=== PATIENT | male | born 1995 ===

== ENCOUNTER 2016-09-21 13:04 | Emergency (ER) | payer OTHER ==
--- NOTE | 2016-09-21 15:24 | ED NURSING NOTES ---
Clinical Report - Nurses [facility] [place] [address] 09/21/2016 13:05 Patient: NAZARIO WHIPPLE TRIAGE Triage time 13:16. Acuity: LEVEL 3. Chief Complaint: SORE THROAT. 13:16 09/21/16. 13:16 09/21/16. ( Pt is post tonsillectomy and now cannot swallow and has a fever. Pt was advised to come the ER due to a possible throat infection.). --13:20 Dedrick Leung R.N. 13:15 09/21/16. BP: 151/97. HR: 96. RR: 18. O2 saturation: 100% on room air. Temp: 98.4 F (oral). Pain level now: cannot qualify. --13:20 Dedrick Leung R.N. Weight: 142.4 kg. Height/Length: 66 inches. BMI: 50.7. --13:18 Dedrick Leung R.N. Medications OxyCODONE HCl Oral. --13:18 Dedrick Leung R.N. Dexamethasone Oral. --13:19 Dedrick Leung R.N. Amoxicillin Oral. --13:19 Dedrick Leung R.N. Medication/allergy information source: the patient's guardian / financial service professional. --13:20 Dedrick Leung R.N. Allergies No Known Drug Allergy. --15:38 Dedrick Leung R.N. History Arrived by private vehicle. Primary physician (Maribell SIDDIQUI). 13:16 09/21/16. He has no dental appointment scheduled. 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 PAST MEDICAL HX: Immunizations: up-to-date. SOCIAL HX: Never smoker. No alcohol use or drug use. No infectious disease exposure. ABUSE ASSESSMENT: No report of abuse. FALL RISK ASSESSMENT: Fall risk assessment completed. No fall risk identified. NUTRITIONAL RISK ASSESSMENT: The nutritional risk assessment revealed no deficiencies. FUNCTIONAL ASSESSMENT: Functional assessment: no impairments noted. LEARNING NEEDS ASSESSMENT: The learning needs assessment revealed no barriers. SKIN INTEGRITY ASSESSMENT: Skin integrity risk assessment completed. No skin integrity risk identified. --13:20 Dedrick Leung R.N. PROBLEMS: Strep Throat. Tonsillitis. Abdominal Pain. Immunizations. Depression. Anxiety Reaction. ADHD - Attention Deficit Hyperactivity Disorder. --13:19 Dedrick eLung R.N. ADDITIONAL SURGERIES: Tonsillectomy. --13:19 Dedrick Leung R.N. Assessment 13:09/21/16. --13:20 Dedrick Leung R.N. Interventions 13:09/21/16. 13:09/21/16. ID and allergy band on patient. To treatment room. --13:20 Dedrick Leung R.N. PHYSICAL ASSESSMENT 13:09/21/16. GENERAL / NEURO / PSYCH: Alert. Oriented X 4. ( Pt is non verbal due to throat pain). HEENT: Voice abnormal. CVS: Capillary refill less than 2 seconds. SKIN: Skin is warm and dry. --13:20 Dedrick Leung R.N. NURSING PROGRESS NOTES 13:09/21/16. The plan of care for this patient has been created. Patient gowned. Head of bed elevated. Reassurance given. Two patient identifiers checked. Call light placed in reach. Side rails up x 2. Bed placed in lowest position. Brakes of bed on. Brakes of chair on. --13:20 Dedrick Leung R.N. 13:09/21/16. Patient ready for evaluation- chart flagged and notification provided. --13:20 Dedrick Leung R.N. 13:54 09/21/2016 Site #1 started via IV in the left antecubital space with an 20g angiocath, with aseptic technique and good blood return; one attempt. Blood drawn: rainbow set. Labeled in the presence of the patient and sent to the lab. Saline lock flushed with 10 mL saline. --13:54 Dedrick Leung R.N. 13:54 09/21/2016 Started bag #1 1000 mL IV Fluids IV NS (Saline); at 1000 mL/hr over 1 hour(s) via site #1. Allergies verified and confirmed 5 rights. IV patency established. IV site checked: no pain, redness, or swelling. IV flushed thoroughly pre- and post-medication administration. Completed per protocol. --13:54 Dedrick Leung R.N. 13:55 09/21/2016 Dilaudid (HYDROmorphone HCl PF) IVP 1 mg given over 2 minute(s) via site #1. Allergies verified, confirmed 5 rights and sedative warning given to the patient. IV patency established. IV site checked: no pain, redness, or swelling. IV flushed thoroughly pre- and post-medication administration. IVP given by RN. --13:55 Dedrick Leung R.N. 14:33 09/21/2016 Started 900 mg of Clindamycin IVPB in bag #1 50 mL; at 100 mL/hr over 30 minute(s) via site #1; Allergies verified and confirmed 5 rights. IV patency established. IV site checked: no pain, redness, or swelling. IV flushed thoroughly pre- and post-medication administration. Completed per protocol. --14:33 Dedrick Leung R.N. 14:33 09/21/2016 Started bag #2 1000 mL IV Fluids IV NS (Saline); at 1000 mL/hr over 1 hour(s) via site #1. Allergies verified and confirmed 5 rights. IV patency established. IV site checked: no pain, redness, or swelling. IV flushed thoroughly pre- and post-medication administration. Completed per protocol. --14:33 Dedrick Leung R.N. 14:34 09/21/16. --14:34 Dedrick Leung R.N. 14:33 09/21/16. BP: 144/70. HR: 87. RR: 12. O2 saturation: 99% on room air. Temp: 98.2 F (oral). --14:34 Dedrick Leung R.N. 14:34 09/21/16. Reassessment after medication administered. He reports no complaints, he is calm, resting quietly and sleeping and he has had no adverse reaction. Overall patient status is improved- he states feels better. --14:34 Dedrick Leung R.N. 15:05 09/21/2016 Clindamycin IVPB Discontinued: bag #1 infused. Total amount infused: 50 mL. --15:35 Dedrick Leung R.N. <<STRICKEN ENTRY-- 15:10 09/21/2016 Clindamycin IVPB Discontinued: bag #1 infused. Total amount infused: 100 mL. --15:35 eDdrick Leung R.N. --END STRIKE>> Correction. --15:35 Dedrick Leung R.N. 15:30 09/21/2016 Site #1 removed upon discharge. Catheter intact. --15:35 Dedrick Leung R.N. 15:31 09/21/2016 IV Fluids IV NS Discontinued: bag #1 infused. Total amount infused: 1000 mL. IV patency established. IV site checked: no pain, redness, or swelling. IV flushed thoroughly. --15:36 Dedrick Leung R.N. 15:36 09/21/2016 IV Fluids IV NS Discontinued: bag #1 infused upon discharge. Total amount infused: 1000 mL. IV patency established. IV site checked: no pain, redness, or swelling. IV flushed thoroughly. --15:36 Dderick Leung R.N. 15:37 09/21/16. Overall patient status is improved- he states feels better. --15:37 Dedrick Leung R.N. DISPOSITION / DISCHARGE 15:37 09/21/16. Condition at departure: improved. The goals identified in the patient's plan of care were met. No learning barriers present. Discharge instructions provided and reviewed with the patient. Reviewed warnings. Reviewed medication(s). Treatments reviewed. Reviewed referral to an ear, nose, and throat specialist (security sales consultant) for followup. Written instructions provided in Italian. Caregiver verbalized understanding. The patient was discharged by the physician investment sales assistant. He was discharged home and accompanied by bus van driver. He left the Emergency Department ambulatory and via private vehicle. System Archive Analyst driving (caregiver). FALL RISK ASSESSMENT: Fall risk assessment completed. No fall risk identified. --15:37 Dedrick Leung R.N. 15:36 09/21/16. BP: 122/76. HR: 80. RR: 12. O2 saturation: 99% on room air. Temp: 98.7 F (oral). --15:37 Dderick Leung R.N. 15:37 09/21/16. Departure time: 15:37. --15:37 Dedrick Leung R.N. Condition at departure: improved. --15:37 Dedrick Leung R.N. Locked/Released at 09/21/2016 15:54 by Dedrick Leung R.N.
--- NOTE | 2016-09-21 15:24 | ED CLINICAL REPORT ---
Clinical Report - Physicians/Mid Levels [facility] [address] [place] [place] [address] 09/21/2016 13:05 Patient: NAZARIO WHIPPLE Time Seen: 13:23 Sep 21 2016. Arrived- By private vehicle. Historian- patient. HISTORY OF PRESENT ILLNESS Chief Complaint: SORE THROAT. This started just prior to arrival and is still present. Pain described as mild. The patient has had a sore throat. (20-year-old male, with disability, mental delay, has a caregiver provided by the [facility], status post tonsillectomy on the , 2 days prior to arrival, worsening of pain, difficulty swallowing, was seen by primary care provider today, who discussed the case with Dr. Jay, who). REVIEW OF SYSTEMS The patient has had fever. No cough, difficulty breathing, joint pain or enlarged lymph nodes. All systems otherwise negative, except as recorded above. ADDITIONAL NOTES The nursing notes have been reviewed. PHYSICAL EXAM Vital Signs: 09/21/2016 13:15 BP: 151/97. HR: 96. RR: 18. O2 saturation: 100%. Temp: 98.4 F. Appearance: Alert. Head: Normal external inspection. ENT: Ears normal. Nose normal. Pharyngeal erythema. Tonsillar exudate present. No dental decay. Neck: Lymphadenopathy present. Trachea midline. Thyroid normal. Neck supple. No thyromegaly or meningeal signs. CVS: Normal heart rate and rhythm. Heart sounds normal. Respiratory: No respiratory distress. Breath sounds normal. LABS, X-RAYS, AND EKG Laboratory Tests: CBC w Diff: (SHIV: 09/21/2016 13:40) ( MsgRcvd 09/21/2016 14:10) Final results Test Result Flag Units (Reference) WHITE BLOOD COUNT 15.7 H K/uL (4.5-11.5) RED BLOOD COUNT 5.37 M/uL (4.50-5.90) HEMOGLOBIN 15.3 gm/dL (13.5-17.5) HEMATOCRIT 45.6 % (41.0-53.0) MEAN CELL VOLUME 85 fL (80-100) MEAN CORPUSCULAR HGB 29 pg (26-34) MEAN CORPUSCULAR HGB CONC 34 g/dL (31-37) RED CELL DISTRIBUTION WIDTH 13.5 % (11.6-14.8) PLATELET COUNT 285 K/uL (150-400) NEUTROPHIL % 63.8 % (50-75) LYMPH % 28.4 % (25-40) MONO % 6.8 % (3-14) EOSINOPHIL % 0.3 % (0-4) BASOPHIL % 0.7 % (0-2) BMP: (SHIV: 09/21/2016 13:40) ( MsgRcvd 09/21/2016 14:02) Final results Test Result Flag Units (Reference) GLUCOSE 91 mg/dL (70-110) BUN 21 H mg/dL (7-18) CREATININE 1.0 mg/dL (0.6-1.3) Estimated GFR >60 mL/min Estimated GFR- >60 mL/min Note: Persistent reduction over 3 months in eGFR<60 mL/min/1.73 m2 defines CKD. Patients with eGFR values>=60 mL/min/1.73 m2 may also have CKD if evidence ofpersistent proteinuria. Additional information may be foundat www.kidney.org. SODIUM 145 mmol/L (136-145) POTASSIUM 3.4 L mmol/L (3.5-5.1) CHLORIDE 104 mmol/L (98-107) CARBON DIOXIDE 28 mmol/L (21-32) CALCIUM 9.6 mg/dL (8.5-10.1) . PROGRESS AND PROCEDURES Course of Care: Pt in er able to tolerate po fluid, given iv ns, given iv abx, uvula midline, generalized swelling, white exudates, no bleeding. Pt stable. Pt is with no uvula shift. No distress. Stable Pt with mild anterior lymphadenopathy. No clinical signs of abscess. No left shift with 15.7 luekocytosis as this may be due to steroid use at home, dexamethasone since the . 09/21/2016 14:33 BP: 144/70. HR: 87. RR: 12. O2 saturation: 99%. Temp: 98.2 F. Patient is stable. Physical exam findings are improved. Symptoms better. Patient/family counseled. Disposition: Discharged. Condition: good. CLINICAL IMPRESSION Acute pharyngitis Post-operative complication from ear, nose, and throat surgery- infection (pain). INSTRUCTIONS Drink plenty of fluids. Prescription Medications: Cleocin 300 mg: take 1 capsule orally every 8 hours for 10 days. Substitution is permissible. Follow-up: Follow up with your doctor in three days if not well. Understanding of the discharge instructions verbalized by patient. (Electronically signed by Martha Triplett P.A.-C 09/21/2016 15:44)
--- NOTE | 2016-09-21 15:24 | ED NURSING NOTES ---
Clinical Report - Nurses [facility] [place] [address] 09/21/2016 13:05 Patient: NAZARIO WHIPPLE TRIAGE Triage time 13:16. Acuity: LEVEL 3. Chief Complaint: SORE THROAT. 13:16 09/21/16. 13:16 09/21/16. ( Pt is post tonsillectomy and now cannot swallow and has a fever. Pt was advised to come the ER due to a possible throat infection.). --13:20 Dedrick Leung R.N. 13:15 09/21/16. BP: 151/97. HR: 96. RR: 18. O2 saturation: 100% on room air. Temp: 98.4 F (oral). Pain level now: cannot qualify. --13:20 Dedrick Leung R.N. Weight: 142.4 kg. Height/Length: 66 inches. BMI: 50.7. --13:18 Dedrick Leung R.N. Medications OxyCODONE HCl Oral. --13:18 Dedrick Leung R.N. Dexamethasone Oral. --13:19 Dedrick Leung R.N. Amoxicillin Oral. --13:19 Dedrick Leung R.N. Medication/allergy information source: the patient's guardian / it project manager. --13:20 Dedrick Leung R.N. Allergies No Known Drug Allergy. --15:38 Dedrick Leung R.N. History Arrived by private vehicle. Primary physician (Maribell SIDDIQUI). 13:16 09/21/16. He has no dental appointment scheduled. 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 PAST MEDICAL HX: Immunizations: up-to-date. SOCIAL HX: Never smoker. No alcohol use or drug use. No infectious disease exposure. ABUSE ASSESSMENT: No report of abuse. FALL RISK ASSESSMENT: Fall risk assessment completed. No fall risk identified. NUTRITIONAL RISK ASSESSMENT: The nutritional risk assessment revealed no deficiencies. FUNCTIONAL ASSESSMENT: Functional assessment: no impairments noted. LEARNING NEEDS ASSESSMENT: The learning needs assessment revealed no barriers. SKIN INTEGRITY ASSESSMENT: Skin integrity risk assessment completed. No skin integrity risk identified. --13:20 Dedrick Leung R.N. PROBLEMS: Strep Throat. Tonsillitis. Abdominal Pain. Immunizations. Depression. Anxiety Reaction. ADHD - Attention Deficit Hyperactivity Disorder. --13:19 Dedrick Leung R.N. ADDITIONAL SURGERIES: Tonsillectomy. --13:19 Dedrick Leung R.N. Assessment 13:09/21/16. --13:20 Dedrick Leung R.N. Interventions 13:09/21/16. 13:09/21/16. ID and allergy band on patient. To treatment room. --13:20 Dedrick Leung R.N. PHYSICAL ASSESSMENT 13:09/21/16. GENERAL / NEURO / PSYCH: Alert. Oriented X 4. ( Pt is non verbal due to throat pain). HEENT: Voice abnormal. CVS: Capillary refill less than 2 seconds. SKIN: Skin is warm and dry. --13:20 Dedrick Leung R.N. NURSING PROGRESS NOTES 13:09/21/16. The plan of care for this patient has been created. Patient gowned. Head of bed elevated. Reassurance given. Two patient identifiers checked. Call light placed in reach. Side rails up x 2. Bed placed in lowest position. Brakes of bed on. Brakes of chair on. --13:20 Dedrick Leung R.N. 13:09/21/16. Patient ready for evaluation- chart flagged and notification provided. --13:20 Dedrick Leung R.N. 13:54 09/21/2016 Site #1 started via IV in the left antecubital space with an 20g angiocath, with aseptic technique and good blood return; one attempt. Blood drawn: rainbow set. Labeled in the presence of the patient and sent to the lab. Saline lock flushed with 10 mL saline. --13:54 Dedrick Leung R.N. 13:54 09/21/2016 Started bag #1 1000 mL IV Fluids IV NS (Saline); at 1000 mL/hr over 1 hour(s) via site #1. Allergies verified and confirmed 5 rights. IV patency established. IV site checked: no pain, redness, or swelling. IV flushed thoroughly pre- and post-medication administration. Completed per protocol. --13:54 Dedrick Leung R.N. 13:55 09/21/2016 Dilaudid (HYDROmorphone HCl PF) IVP 1 mg given over 2 minute(s) via site #1. Allergies verified, confirmed 5 rights and sedative warning given to the patient. IV patency established. IV site checked: no pain, redness, or swelling. IV flushed thoroughly pre- and post-medication administration. IVP given by RN. --13:55 Dedrick Leung R.N. 14:33 09/21/2016 Started 900 mg of Clindamycin IVPB in bag #1 50 mL; at 100 mL/hr over 30 minute(s) via site #1; Allergies verified and confirmed 5 rights. IV patency established. IV site checked: no pain, redness, or swelling. IV flushed thoroughly pre- and post-medication administration. Completed per protocol. --14:33 Dedrick Leung R.N. 14:33 09/21/2016 Started bag #2 1000 mL IV Fluids IV NS (Saline); at 1000 mL/hr over 1 hour(s) via site #1. Allergies verified and confirmed 5 rights. IV patency established. IV site checked: no pain, redness, or swelling. IV flushed thoroughly pre- and post-medication administration. Completed per protocol. --14:33 Dedrick Leung R.N. 14:34 09/21/16. --14:34 Dedrick Leung R.N. 14:33 09/21/16. BP: 144/70. HR: 87. RR: 12. O2 saturation: 99% on room air. Temp: 98.2 F (oral). --14:34 Dedrick Leung R.N. 14:34 09/21/16. Reassessment after medication administered. He reports no complaints, he is calm, resting quietly and sleeping and he has had no adverse reaction. Overall patient status is improved- he states feels better. --14:34 Dedrick Leung R.N. 15:05 09/21/2016 Clindamycin IVPB Discontinued: bag #1 infused. Total amount infused: 50 mL. --15:35 Dedrick Leung R.N. <<STRICKEN ENTRY-- 15:10 09/21/2016 Clindamycin IVPB Discontinued: bag #1 infused. Total amount infused: 100 mL. --15:35 Dedrick Leung R.N. --END STRIKE>> Correction. --15:35 Dedrick Leung R.N. 15:30 09/21/2016 Site #1 removed upon discharge. Catheter intact. --15:35 Dedrick Leung R.N. 15:31 09/21/2016 IV Fluids IV NS Discontinued: bag #1 infused. Total amount infused: 1000 mL. IV patency established. IV site checked: no pain, redness, or swelling. IV flushed thoroughly. --15:36 Dedrick Leung R.N. 15:36 09/21/2016 IV Fluids IV NS Discontinued: bag #1 infused upon discharge. Total amount infused: 1000 mL. IV patency established. IV site checked: no pain, redness, or swelling. IV flushed thoroughly. --15:36 Dedrick Leung R.N. 15:37 09/21/16. Overall patient status is improved- he states feels better. --15:37 Dedrick Leung R.N. DISPOSITION / DISCHARGE 15:37 09/21/16. Condition at departure: improved. The goals identified in the patient's plan of care were met. No learning barriers present. Discharge instructions provided and reviewed with the patient. Reviewed warnings. Reviewed medication(s). Treatments reviewed. Reviewed referral to an ear, nose, and throat specialist (actuarial clerk) for followup. Written instructions provided in Lao. Caregiver verbalized understanding. The patient was discharged by the physician stonecutter assistant. He was discharged home and accompanied by scrap preparation supervisor. He left the Emergency Department ambulatory and via private vehicle. Regulation Supervisor driving (caregiver). FALL RISK ASSESSMENT: Fall risk assessment completed. No fall risk identified. --15:37 Dedrick Leung R.N. 15:36 09/21/16. BP: 122/76. HR: 80. RR: 12. O2 saturation: 99% on room air. Temp: 98.7 F (oral). --15:37 Dedrick Leung R.N. 15:37 09/21/16. Departure time: 15:37. --15:37 Dedrick Leung R.N. Condition at departure: improved. --15:37 Dedrick Leung R.N. Locked/Released at 09/21/2016 15:54 by Dedrick Leung R.N.
--- NOTE | 2016-09-21 15:24 | ED ORDER SUMMARY ---
..... Patient: NAZARIO WHIPPLE OrderSheet [facility] VisitID: [id number] [place] [address] 20y, M Registration Date/Time: 09/21/2016 ORDER SHEET Weight: 142.4 kg Allergies: No Known Drug Allergy GENERAL ORDERS: CBC w Diff Urgent (13:20 09/21/2016 EKoroleva P.A.-C) (Ack 13:28 LMuller) (13:48 JBoardley R.N.) BMP Urgent (13:20 09/21/2016 EKoroleva P.A.-C) (Ack 13:28 LMuller) (13:48 JBoardley R.N.) Blood Culture (No) (N/A) Urgent (14:21 09/21/2016 EKoroleva P.A.-C) (14:23 JBoardley R.N.) MEDICATION ORDERS: IV FLUIDS: IV NS : initial bolus 1000 mL (1000 mL/hr), then 1000 mL/hr for X1 (NOW); Edilson (13:19 09/21/2016 EKoroleva P.A.-C) (Ack 13:21 JBoardley R.N.) (13:54 JBoardley R.N.) Dilaudid IV 1 mg (may repeat in 15 ins 1 mg, total of 2 mg) (13:34 09/21/2016 EKoroleva P.A.-C) (Ack 13:48 JBoardley R.N.) (13:55 JBoardley R.N.) Clindamycin IV 900 mg/50mL (NOW) (14:20 09/21/2016 EKoroleva P.A.-C) (Ack 14:22 JBoardley R.N.) (14:33 JBoardley R.N.) ORDER SHEET NOTES: [Electronically signed by Martha Triplett PRadhaA.-C (15:44 09/21/2016)] [Electronically signed by Dedrick Leung R.N. (15:54 09/21/2016)] [Electronically locked/signed by Dedrick Leung R.N. (15:54 09/21/2016)]
--- NOTE | 2016-09-21 15:24 | ED ORDER SUMMARY ---
..... Patient: NAZARIO WHIPPLE OrderSheet [facility] VisitID: [id number] [place] [address] 20y, M Registration Date/Time: 09/21/2016 ORDER SHEET Weight: 142.4 kg Allergies: No Known Drug Allergy GENERAL ORDERS: CBC w Diff Urgent (13:20 09/21/2016 EKoroleva P.A.-C) (Ack 13:28 LMuller) (13:48 JBoardley R.N.) BMP Urgent (13:20 09/21/2016 EKoroleva P.A.-C) (Ack 13:28 LMuller) (13:48 JBoardley R.N.) Blood Culture (No) (N/A) Urgent (14:21 09/21/2016 EKoroleva P.A.-C) (14:23 JBoardley R.N.) MEDICATION ORDERS: IV FLUIDS: IV NS : initial bolus 1000 mL (1000 mL/hr), then 1000 mL/hr for X1 (NOW); Edilson (13:19 09/21/2016 EKoroleva P.A.-C) (Ack 13:21 JBoardley R.N.) (13:54 JBoardley R.N.) Dilaudid IV 1 mg (may repeat in 15 ins 1 mg, total of 2 mg) (13:34 09/21/2016 EKoroleva P.A.-C) (Ack 13:48 JBoardley R.N.) (13:55 JBoardley R.N.) Clindamycin IV 900 mg/50mL (NOW) (14:20 09/21/2016 EKoroleva P.A.-C) (Ack 14:22 JBoardley R.N.) (14:33 JBoardley R.N.) ORDER SHEET NOTES: [Electronically signed by Martha Triplett PRadhaA.-C (15:44 09/21/2016)] [Electronically signed by Dedrick Leung R.N. (15:54 09/21/2016)] [Electronically locked/signed by Dedrick Leung R.N. (15:54 09/21/2016)]
--- NOTE | 2016-09-21 15:24 | ED CLINICAL REPORT ---
Clinical Report - Physicians/Mid Levels [facility] [address] [place] [address] 09/21/2016 13:05 Patient: NAZARIO WHIPPLE Time Seen: 13:23 Sep 21 2016. Arrived- By private vehicle. Historian- patient. HISTORY OF PRESENT ILLNESS Chief Complaint: SORE THROAT. This started just prior to arrival and is still present. Pain described as mild. The patient has had a sore throat. (20-year-old male, with disability, mental delay, has a caregiver provided by the [facility], status post tonsillectomy on the , 2 days prior to arrival, worsening of pain, difficulty swallowing, was seen by primary care provider today, who discussed the case with Dr. Jay, who). REVIEW OF SYSTEMS The patient has had fever. No cough, difficulty breathing, joint pain or enlarged lymph nodes. All systems otherwise negative, except as recorded above. ADDITIONAL NOTES The nursing notes have been reviewed. PHYSICAL EXAM Vital Signs: 09/21/2016 13:15 BP: 151/97. HR: 96. RR: 18. O2 saturation: 100%. Temp: 98.4 F. Appearance: Alert. Head: Normal external inspection. ENT: Ears normal. Nose normal. Pharyngeal erythema. Tonsillar exudate present. No dental decay. Neck: Lymphadenopathy present. Trachea midline. Thyroid normal. Neck supple. No thyromegaly or meningeal signs. CVS: Normal heart rate and rhythm. Heart sounds normal. Respiratory: No respiratory distress. Breath sounds normal. LABS, X-RAYS, AND EKG Laboratory Tests: CBC w Diff: (SHIV: 09/21/2016 13:40) ( MsgRcvd 09/21/2016 14:10) Final results Test Result Flag Units (Reference) WHITE BLOOD COUNT 15.7 H K/uL (4.5-11.5) RED BLOOD COUNT 5.37 M/uL (4.50-5.90) HEMOGLOBIN 15.3 gm/dL (13.5-17.5) HEMATOCRIT 45.6 % (41.0-53.0) MEAN CELL VOLUME 85 fL (80-100) MEAN CORPUSCULAR HGB 29 pg (26-34) MEAN CORPUSCULAR HGB CONC 34 g/dL (31-37) RED CELL DISTRIBUTION WIDTH 13.5 % (11.6-14.8) PLATELET COUNT 285 K/uL (150-400) NEUTROPHIL % 63.8 % (50-75) LYMPH % 28.4 % (25-40) MONO % 6.8 % (3-14) EOSINOPHIL % 0.3 % (0-4) BASOPHIL % 0.7 % (0-2) BMP: (SHIV: 09/21/2016 13:40) ( MsgRcvd 09/21/2016 14:02) Final results Test Result Flag Units (Reference) GLUCOSE 91 mg/dL (70-110) BUN 21 H mg/dL (7-18) CREATININE 1.0 mg/dL (0.6-1.3) Estimated GFR >60 mL/min Estimated GFR- >60 mL/min Note: Persistent reduction over 3 months in eGFR<60 mL/min/1.73 m2 defines CKD. Patients with eGFR values>=60 mL/min/1.73 m2 may also have CKD if evidence ofpersistent proteinuria. Additional information may be foundat www.kidney.org. SODIUM 145 mmol/L (136-145) POTASSIUM 3.4 L mmol/L (3.5-5.1) CHLORIDE 104 mmol/L (98-107) CARBON DIOXIDE 28 mmol/L (21-32) CALCIUM 9.6 mg/dL (8.5-10.1) . PROGRESS AND PROCEDURES Course of Care: Pt in er able to tolerate po fluid, given iv ns, given iv abx, uvula midline, generalized swelling, white exudates, no bleeding. Pt stable. Pt is with no uvula shift. No distress. Stable Pt with mild anterior lymphadenopathy. No clinical signs of abscess. No left shift with 15.7 luekocytosis as this may be due to steroid use at home, dexamethasone since the . 09/21/2016 14:33 BP: 144/70. HR: 87. RR: 12. O2 saturation: 99%. Temp: 98.2 F. Patient is stable. Physical exam findings are improved. Symptoms better. Patient/family counseled. Disposition: Discharged. Condition: good. CLINICAL IMPRESSION Acute pharyngitis Post-operative complication from ear, nose, and throat surgery- infection (pain). INSTRUCTIONS Drink plenty of fluids. Prescription Medications: Cleocin 300 mg: take 1 capsule orally every 8 hours for 10 days. Substitution is permissible. Follow-up: Follow up with your doctor in three days if not well. Understanding of the discharge instructions verbalized by patient. (Electronically signed by Martha Triplett P.A.-C 09/21/2016 15:44)
--- NOTE | 2016-09-21 15:54 | ED DISCHARGE INSTRUCTIONS ---
Patient: NAZARIO WHIPPLE General Instructions [facility] VisitID: [id number] [place] [address] 20y, M Registration Date/Time: 09/21/2016 Acute pharyngitis Post-operative complication from ear, nose, and throat surgery- infection (pain). INSTRUCTIONS Drink plenty of fluids. Prescription Medications: Cleocin 300 mg: take 1 capsule orally every 8 hours for 10 days. Substitution is permissible. Follow-up: Follow up with your doctor in three days if not well. Understanding of the discharge instructions verbalized by patient. ADDITIONAL INFORMATION Viral Pharyngitis (Sore Throat) Your throat pain is due to an infection called "Viral Pharyngitis", commonly known as "Sore Throat". This is a contagious illness. It is spread through the air by coughing, kissing or by touching others after touching your mouth or nose. Symptoms include throat pain worse with swallowing, aching all over, headache and fever. Unlike strep throat, which is a bacterial infection, this illness does not require treatment with an antibiotic. Home Care: If your symptoms are severe, rest at home for the first 2-3 days. Children: Use acetaminophen (Tylenol) for fever, fussiness or discomfort. In infants over six months of age, you may use ibuprofen (Children's Motrin) instead of Tylenol. [NOTE: If your child has chronic liver or kidney disease or ever had a stomach ulcer or GI bleeding, talk with your javon doctor before using these medicines.] (Aspirin should never be used in anyone under 18 years of age who is ill with a fever. It may cause severe liver damage.) Adults: You may use acetaminophen (Tylenol) or ibuprofen (Motrin, Advil) to control pain or fever, unless another medicine was prescribed. [NOTE: If you have chronic liver or kidney disease or ever had a stomach ulcer or GI bleeding, talk with your doctor before using these medicines.] Throat lozenges or sprays (Chloraseptic and others) will reduce pain. Gargling with warm salt water will also reduce throat pain. Dissolve 1/2 teaspoon of salt in 1 glass of warm water. This is especially useful just before meals. Follow Up with your doctor or as directed by our staff if you are not improving over the next week. Get Prompt Medical Attention if any of the following occur: Fever over 100.5F (38.0C) oral, or over 101.5F (38.6C) rectal for more than three days New or worsening ear pain, sinus pain or headache Painful lumps in the back of your neck Unable to swallow liquids or open your mouth wide due to throat pain Trouble breathing or noisy breathing Muffled voice New rash Clindamycin Hydrochloride Oral capsule What is this medicine? CLINDAMYCIN (MADDY Serra) is a lincosamide antibiotic. It is used to treat certain kinds of bacterial infections. It will not work for colds, flu, or other viral infections. How should I use this medicine? Take this medicine by mouth with a full glass of water. Follow the directions on the prescription label. You can take this medicine with food or on an empty stomach. If the medicine upsets your stomach, take it with food. Take your medicine at regular intervals. Do not take your medicine more often than directed. Take all of your medicine as directed even if you think your are better. Do not skip doses or stop your medicine early. Talk to your director river restoration regarding the use of this medicine in children. Special care may be needed. What side effects may I notice from receiving this medicine? Side effects that you should report to your doctor or health home care manager rn as soon as possible: allergic reactions like skin rash, itching or hives, swelling of the face, lips, or tongue dark urine pain on swallowing redness, blistering, peeling or loosening of the skin, including inside the mouth unusual bleeding or bruising unusually weak or tired yellowing of eyes or skin Side effects that usually do not require medical attention (report to your doctor or health home care manager rn if they continue or are bothersome): diarrhea itching in the rectal or genital area joint pain nausea, vomiting stomach pain What may interact with this medicine? chloramphenicol erythromycin kaolin products What if I miss a dose? If you miss a dose, take it as soon as you can. If it is almost time for your next dose, take only that dose. Do not take double or extra doses. Where should I keep my medicine? Keep out of the reach of children. Store at room temperature between 20 and 25 degrees C (68 and 77 degrees F). Throw away any unused medicine after the expiration date. What should I tell my health care provider before I take this medicine? They need to know if you have any of these conditions: kidney disease liver disease stomach problems like colitis an unusual or allergic reaction to clindamycin, lincomycin, or other medicines, foods, dyes like tartrazine or preservatives or trying to get breast-feeding What should I watch for while using this medicine? Tell your doctor or healthcare professional if your symptoms do not start to get better or if they get worse. Do not treat diarrhea with over the counter products. Contact your doctor if you have diarrhea that lasts more than 2 days or if it is severe and watery. You have been given the following additional information: Pharyngitis, Viral Clindamycin Hydrochloride Oral capsule (Electronically signed by Martha Triplett P.A.-C 09/21/2016 15:44)
--- NOTE | 2016-09-21 15:55 | ED MED RECONCILIATION SUMMARY ---
Patient: NAZARIO WHIPPLE Medication Reconciliation Report [facility] VisitID: [id number] [address] [place] [address] 20y, M Registration Date/Time: 09/21/2016 Weight: 142.4 kg Height/Length: 66 in. 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 Substitution is permissible. -- Martha Triplett P.A.-C
--- NOTE | 2016-09-21 15:55 | ED MAR SUMMARY ---
..... Medication Administration Record [facility] [address] [place] [address] Patient: NAZARIO WHIPPLE Visit ID: [id number] 20y, M Weight: 142.4 kg Height/Length: 66 in BMI: 50.7 ALLERGIES: No Known Drug Allergy Start 13:54 09/21/2016 Dedrick Leung R.N., Stop 15:31 09/21/2016 Dedrick Leung R.N. Medication Administered: IV NS (SALINE), Dose: IV Fluids over 1 hour(s), Rate: 1000 mL/hr, Dispensed: 1000 mL bag, Site: #1 left AC. Medication Ordered: IV NS : initial bolus 1000 mL (1000 mL/hr), then 1000 mL/hr for X1 (NOW); Edilson. Given 13:55 09/21/2016 Dedrick Leung R.N. Medication Administered: DILAUDID [IVP] (HYDROMORPHONE HCL PF), Dose: 1 mg IVP over 2 minute(s), Site: #1 left AC. Medication Ordered: Dilaudid IV 1 mg (may repeat in 15 ins 1 mg, total of 2 mg). Start 14:33 09/21/2016 Dedrick Leung R.N., Stop 15:05 09/21/2016 Dedrick Leung R.N. Medication Administered: CLINDAMYCIN [IVPB], Dose: 900 mg IVPB over 30 minute(s), Rate: 100 mL/hr, Dispensed: 50 mL bag, Site: #1 left AC. Medication Ordered: Clindamycin IV 900 mg/50mL (NOW). Start 14:33 09/21/2016 Dedrick Leung R.N., Stop 15:36 09/21/2016 Dedrick Leung R.N. Medication Administered: IV NS (SALINE), Dose: IV Fluids over 1 hour(s), Rate: 1000 mL/hr, Dispensed: 1000 mL bag, Site: #1 left AC. Medication Ordered: IV NS : initial bolus 1000 mL (1000 mL/hr), then 1000 mL/hr for X1 (NOW); Edilson.
--- NOTE | 2016-09-21 15:55 | ED MAR SUMMARY ---
..... Medication Administration Record Located Within [facility] [address] [place] [address] Patient: NAZARIO WHIPPLE Visit ID: [id number] 20y, M Weight: 142.4 kg Height/Length: 66 in BMI: 50.7 ALLERGIES: No Known Drug Allergy Start 13:54 09/21/2016 Dedrick Leung R.N., Stop 15:31 09/21/2016 Dedrick Leung R.N. Medication Administered: IV NS (SALINE), Dose: IV Fluids over 1 hour(s), Rate: 1000 mL/hr, Dispensed: 1000 mL bag, Site: #1 left AC. Medication Ordered: IV NS : initial bolus 1000 mL (1000 mL/hr), then 1000 mL/hr for X1 (NOW); Edilson. Given 13:55 09/21/2016 Dedrick Leung R.N. Medication Administered: DILAUDID [IVP] (HYDROMORPHONE HCL PF), Dose: 1 mg IVP over 2 minute(s), Site: #1 left AC. Medication Ordered: Dilaudid IV 1 mg (may repeat in 15 ins 1 mg, total of 2 mg). Start 14:33 09/21/2016 Dedrick Leung R.N., Stop 15:05 09/21/2016 Dedrick Leung R.N. Medication Administered: CLINDAMYCIN [IVPB], Dose: 900 mg IVPB over 30 minute(s), Rate: 100 mL/hr, Dispensed: 50 mL bag, Site: #1 left AC. Medication Ordered: Clindamycin IV 900 mg/50mL (NOW). Start 14:33 09/21/2016 Dedrick Leung R.N., Stop 15:36 09/21/2016 Dedrick Leung R.N. Medication Administered: IV NS (SALINE), Dose: IV Fluids over 1 hour(s), Rate: 1000 mL/hr, Dispensed: 1000 mL bag, Site: #1 left AC. Medication Ordered: IV NS : initial bolus 1000 mL (1000 mL/hr), then 1000 mL/hr for X1 (NOW); Edilson.
--- NOTE | 2016-09-21 15:55 | ED MED RECONCILIATION SUMMARY ---
Patient: NAZARIO WHIPPLE Medication Reconciliation Report [facility] VisitID: [id number] [address] [place] [address] 20y, M Registration Date/Time: 09/21/2016 Weight: 142.4 kg Height/Length: 66 in. BMI: 50.7 ALLERGIES: No Known Drug Allergy The patient's Home Medications are listed below: THE FOLLOWING MEDICATIONS NEED TO BE RECONCILED: Amoxicillin Oral Dexamethasone Oral OxyCODONE HCl Oral The source(s) of the original Home Medication information: patient's guardian / senior fund accountant The following Medications were given to the patient in the Emergency Department: IV NS IV Fluids bolus 0, then 1000 mL/hr, administered: 09/21/2016 1:54:00 PM Dilaudid [IVP] IVP 1 mg, administered: 09/21/2016 1:55:00 PM Clindamycin [IVPB] IVPB bolus 0, then 900 mg 100 mL/hr, administered: 09/21/2016 2:33:00 PM IV NS IV Fluids bolus 0, then 1000 mL/hr, administered: 09/21/2016 2:33:00 PM The following Medications were prescribed to the patient: Cleocin 300 mg: take 1 capsule orally every 8 hours for 10 days. Substitution is permissible. -- Martha Triplett P.A.-C
== END 2016-09-21 15:37 | disposition home or self-care (01) ==
LOC: ED SRH 13:04
DX: T81.4XXA Infection following a procedure, initial encounter (principal); G89.18 Other acute postprocedural pain; J02.9 Acute pharyngitis, unspecified
CPT/HCPCS: 90047; 90065; 91672; 95059

== ENCOUNTER 2016-12-10 13:28 | Emergency (ER) | payer OTHER ==
--- NOTE | 2016-12-10 16:01 | ED CLINICAL REPORT ---
Clinical Report - Physicians/Mid Levels [facility] [address] [place] [address] 12/10/2016 13:34 Patient: CRISTI WHIPPLE Time Seen: 14:06; initial patient contact. Arrived- By private vehicle. Historian- patient. HISTORY OF PRESENT ILLNESS Chief Complaint: Injury to the right ankle. The injury happened just prior to arrival. The patient sustained a twisting injury. Occurred at home. Patient is experiencing mild pain. No other injury. REVIEW OF SYSTEMS The patient complains of mild pain on weight bearing. He has had swelling. All systems otherwise negative, except as recorded above. PAST HISTORY See nurses notes. Tetanus immunization status is up-to-date. SOCIAL HISTORY Smoker - current status unknown. No drug use. ADDITIONAL NOTES The nursing notes have been reviewed with agreement regarding the chief complaint, HPI, ROS, PMH and patient medications and allergies. PHYSICAL EXAM Vital Signs: 12/10/2016 16:21 BP: 112/74. HR: 78. RR: 12. O2 saturation: 100%. Temp: 98.5 F. Pain level now: 4/10. 12/10/2016 13:50 BP: 110/64. HR: 77. RR: 16. O2 saturation: 99%. Temp: 98.4 F. Pain level now: 6/10. Appearance: Alert. Oriented X3. No acute distress. Extremities: Right lateral ankle: mild tenderness and swelling. Limited ROM secondary to pain (diminished plantar flexion, dorsiflexion, inversion and eversion). Small joint effusion present. Neurovascular intact distally. No ligamentous laxity present. No deformity. Foot and ankle exam otherwise negative. Neuro, Vascular and Tendons: Vascular status intact. Sensation intact. Motor intact. Tendon function intact. Gait: Limping gait. LABS, X-RAYS, AND EKG X-Rays: Right ankle negative. Rt Ankle X-ray: (Name: Cristi Whipple : 1995 MR#: [id number] Ordering Provider: JOSE RAGLAND Exam(s): XR ANKLE 3 OR 4 VIEWS - RIGHT Date of Exam: 12/10/2016 __ PROCEDURE: XR ANKLE 3 OR 4 VIEWS - RIGHT INDICATION: TRAUMA/INJURY TECHNIQUE: Four views. COMPARISON: Right ankle x-ray 05/19/2015. FINDINGS: Old a avulsion fractures of the medial malleolus. No acute fracture or dislocation. Ankle mortise is normal. Mild soft tissue swelling medially and laterally. IMPRESSION: 1. No acute fracture 2. Old avulsion fractures of the medial malleolus Electronically Final signed by:Tim Perez MD 12/10/2016 4:20:23 PM Technologist: BEATRIZ). The X-rays were independently viewed by me, interpreted by the radiologist and discussed with the radiologist. PROGRESS AND PROCEDURES Course of Care: Patient is stable. CLINICAL IMPRESSION Sprain of the tibiofibular ligament of the right ankle. INSTRUCTIONS Apply ice. Use crutches for one weeks as needed and until better. Wear air splint for two weeks until better (wear the splint that you already have for ankle stability,). Elevate affected areas above chest level for two days as needed and until better. No sports until released and for 2 days. No strenuous activity. You may walk and bear weight as tolerated. Return to school in two days. No dietary restrictions. Warnings: COMPLICATIONS: Complications from this condition are possible. Future problems may include pain and deformity. It is important to follow up with a physician for further evaluation and treatment. Your Current Medications: CONTINUE TAKING THE FOLLOWING MEDICATIONS: Antidepressant*. OTC Medications: Motrin IB 200 mg (available over the counter): take 2 orally every 6 hours as needed for pain, stiffness or swelling Understanding of the discharge instructions verbalized by patient and parent. (Electronically signed by Jose Ragland PA-C 12/10/2016 22:25)
--- NOTE | 2016-12-10 16:01 | ED NURSING NOTES ---
Clinical Report - Nurses [facility] [place] [address] 12/10/2016 13:34 Patient: NAZARIO WHIPPLE TRIAGE Acuity: LEVEL 4. Chief Complaint: INJURY TO RIGHT ANKLE. Alert. No acute distress. --13:56 Diandra Knapp R.N. 13:50 12/10/16. BP: 110/64. HR: 77. RR: 16. O2 saturation: 99% on room air. Temp: 98.4 F (oral). Pain level now: 01/28. --13:56 Diandra Knapp R.N. Weight: 142.4 kg stated. Height/Length: 65 inches Per Patient. BMI: 52.3. --13:54 Diandra Knapp R.N. Medications Antidepressant. --13:51 Diandra Knapp R.N. Medication/allergy information source: the patient. --13:56 Diandra Knapp R.N. Allergies No Known Drug Allergy. --13:52 Diandra Knapp R.N. History Arrived by private vehicle. Historian: patient. Accompanied by guardian. Primary physician (Shaun). This occurred just prior to arrival. ( Pt reports he "rolls my ankles all the time. I am supposed to wear braces on both ankles and forgot today." Pt reports "I felt a pop".). PAST MEDICAL HX: Immunizations: up-to-date. SOCIAL HX: Current every day smoker (electronic cigarrettes). No alcohol use or drug use. FALL RISK ASSESSMENT: Fall risk assessment completed. No fall risk identified. NUTRITIONAL RISK ASSESSMENT: The nutritional risk assessment revealed no deficiencies. FUNCTIONAL ASSESSMENT: Functional assessment: no impairments noted. LEARNING NEEDS ASSESSMENT: The learning needs assessment revealed no barriers. SKIN INTEGRITY ASSESSMENT: Skin integrity risk assessment completed. No skin integrity risk identified. --13:56 Diandra Knapp R.N. PROBLEMS: Post-Op Complications. Pharyngitis. Strep Throat. Tonsillitis. Abdominal Pain. Immunizations. Anxiety Reaction. Depression. ADHD - Attention Deficit Hyperactivity Disorder. --13:52 Diandra Knapp R.N. ADDITIONAL SURGERIES: Tonsillectomy. --13:52 Diandra Knapp R.N. Assessment GENERAL / NEURO / PSYCH: Alert. Oriented X 4. Appears in no acute distress. Patient appears calm and cooperative. RESPIRATORY: Respirations not labored. CVS: Normal sinus rhythm noted. Capillary refill less than 2 seconds. GI / : Abdomen nontender. SKIN: Mucous membranes are pink. Skin is warm and dry. --13:56 Diandra Knapp R.N. Interventions ID band on patient. To treatment room. --13:56 Diandra Knapp R.N. NURSING PROGRESS NOTES Cold pack applied to the right ankle. Patient identifiers checked. Call light placed in reach. Side rails up x 1. Bed placed in lowest position. Brakes of bed on. Patient ready for evaluation- chart flagged and ED physician and PA notified. --13:56 Diandra Knapp R.N. DISPOSITION / DISCHARGE Departure time: 16:00 Dec 10 2016. Condition at departure: improved and stable. No learning barriers present. Discharge instructions provided and reviewed with the guardian and patient. Activity restrictions (minimal use of injured extremity) reviewed. Patient verbalized understanding. Written instructions provided in [place]. Guardian verbalized understanding. The patient was discharged by the physician marketing operations assistant. He was discharged home and accompanied by worm packer. He left the Emergency Department ambulatory and via private vehicle. Knifeman driving. --16:22 Diandra Knapp R.N. 16:21 12/10/16. BP: 112/74. HR: 78. RR: 12. O2 saturation: 100% on room air. Temp: 98.5 F (oral). Pain level now: 11/28. --16:22 Diandra Knapp R.N. Locked/Released at 12/10/2016 16:26 by Diandra Knapp R.N.
--- NOTE | 2016-12-10 16:01 | ED NURSING NOTES ---
Clinical Report - Nurses [facility] [place] [address] 12/10/2016 13:34 Patient: NAZARIO WHIPPLE TRIAGE Acuity: LEVEL 4. Chief Complaint: INJURY TO RIGHT ANKLE. Alert. No acute distress. --13:56 Diandra Knapp R.N. 13:50 12/10/16. BP: 110/64. HR: 77. RR: 16. O2 saturation: 99% on room air. Temp: 98.4 F (oral). Pain level now: 01/28. --13:56 Diandra Knapp R.N. Weight: 142.4 kg stated. Height/Length: 65 inches Per Patient. BMI: 52.3. --13:54 Diandra Knapp R.N. Medications Antidepressant. --13:51 Diandra Knapp R.N. Medication/allergy information source: the patient. --13:56 Diandra Knapp R.N. Allergies No Known Drug Allergy. --13:52 Diandra Knapp R.N. History Arrived by private vehicle. Historian: patient. Accompanied by guardian. Primary physician (Shaun). This occurred just prior to arrival. ( Pt reports he "rolls my ankles all the time. I am supposed to wear braces on both ankles and forgot today." Pt reports "I felt a pop".). PAST MEDICAL HX: Immunizations: up-to-date. SOCIAL HX: Current every day smoker (electronic cigarrettes). No alcohol use or drug use. FALL RISK ASSESSMENT: Fall risk assessment completed. No fall risk identified. NUTRITIONAL RISK ASSESSMENT: The nutritional risk assessment revealed no deficiencies. FUNCTIONAL ASSESSMENT: Functional assessment: no impairments noted. LEARNING NEEDS ASSESSMENT: The learning needs assessment revealed no barriers. SKIN INTEGRITY ASSESSMENT: Skin integrity risk assessment completed. No skin integrity risk identified. --13:56 Diandra Knapp R.N. PROBLEMS: Post-Op Complications. Pharyngitis. Strep Throat. Tonsillitis. Abdominal Pain. Immunizations. Anxiety Reaction. Depression. ADHD - Attention Deficit Hyperactivity Disorder. --13:52 Diandra Knapp R.N. ADDITIONAL SURGERIES: Tonsillectomy. --13:52 Diandra Knapp R.N. Assessment GENERAL / NEURO / PSYCH: Alert. Oriented X 4. Appears in no acute distress. Patient appears calm and cooperative. RESPIRATORY: Respirations not labored. CVS: Normal sinus rhythm noted. Capillary refill less than 2 seconds. GI / : Abdomen nontender. SKIN: Mucous membranes are pink. Skin is warm and dry. --13:56 Diandra Knapp R.N. Interventions ID band on patient. To treatment room. --13:56 Diandra Knapp R.N. NURSING PROGRESS NOTES Cold pack applied to the right ankle. Patient identifiers checked. Call light placed in reach. Side rails up x 1. Bed placed in lowest position. Brakes of bed on. Patient ready for evaluation- chart flagged and ED physician and PA notified. --13:56 Diandra Knapp R.N. DISPOSITION / DISCHARGE Departure time: 16:00 Dec 10 2016. Condition at departure: improved and stable. No learning barriers present. Discharge instructions provided and reviewed with the guardian and patient. Activity restrictions (minimal use of injured extremity) reviewed. Patient verbalized understanding. Written instructions provided in [place]. Guardian verbalized understanding. The patient was discharged by the physician electrician's assistant. He was discharged home and accompanied by book illustrator. He left the Emergency Department ambulatory and via private vehicle. Toolroom Checker driving. --16:22 Diandra Knapp R.N. 16:21 12/10/16. BP: 112/74. HR: 78. RR: 12. O2 saturation: 100% on room air. Temp: 98.5 F (oral). Pain level now: 11/28. --16:22 Diandra Knapp R.N. Locked/Released at 12/10/2016 16:26 by Diandra Knapp R.N.
--- NOTE | 2016-12-10 16:01 | ED ORDER SUMMARY ---
..... Patient: NAZARIO WHIPPLE OrderSheet [facility] VisitID: [id number] [address] [place] [address] 21y, M Registration Date/Time: 12/10/2016 ORDER SHEET Weight: 142.4 kg (stated) Allergies: No Known Drug Allergy GENERAL ORDERS: Ankle 3 or 4V Right (twisted his right ankle, felt a 'pop'....pain and swelling) Urgent (14:15 12/10/2016 Gill HARRIS) (Ack 14:23 OSnell) (14:58 MWinteriram R.N.) Splint (LE) (Right) (Short Leg Posterior) (Fiberglass) (15:49 12/10/2016 Gill HARRIS) (Cancelled: Patient Left16:26 MWinteriram R.N.) MEDICATION ORDERS: IV FLUIDS: ORDER SHEET NOTES: [Electronically signed by Diandra Knapp R.N. (16:26 12/10/2016)] [Electronically signed by Sienna Gardner PA-C (22:25 12/10/2016)] [Electronically locked/signed by Diandra Knapp R.N. (16:26 12/10/2016)]
--- NOTE | 2016-12-10 16:01 | ED ORDER SUMMARY ---
..... Patient: NAZARIO WHIPPLE OrderSheet [facility] VisitID: [id number] [address] [place] [address] 21y, M Registration Date/Time: 12/10/2016 ORDER SHEET Weight: 142.4 kg (stated) Allergies: No Known Drug Allergy GENERAL ORDERS: Ankle 3 or 4V Right (twisted his right ankle, felt a 'pop'....pain and swelling) Urgent (14:15 12/10/2016 Gill HARRIS) (Ack 14:23 OSnell) (14:58 MWinteriram R.N.) Splint (LE) (Right) (Short Leg Posterior) (Fiberglass) (15:49 12/10/2016 Gill HARRIS) (Cancelled: Patient Left16:26 MWinteriram R.N.) MEDICATION ORDERS: IV FLUIDS: ORDER SHEET NOTES: [Electronically signed by Diandra Knapp R.N. (16:26 12/10/2016)] [Electronically signed by Sienna Gardner PA-C (22:25 12/10/2016)] [Electronically locked/signed by Diandra Knapp R.N. (16:26 12/10/2016)]
--- NOTE | 2016-12-10 16:01 | ED CLINICAL REPORT ---
Clinical Report - Physicians/Mid Levels [facility] [address] [place] [address] 12/10/2016 13:34 Patient: CRISTI WHIPPLE Time Seen: 14:06; initial patient contact. Arrived- By private vehicle. Historian- patient. HISTORY OF PRESENT ILLNESS Chief Complaint: Injury to the right ankle. The injury happened just prior to arrival. The patient sustained a twisting injury. Occurred at home. Patient is experiencing mild pain. No other injury. REVIEW OF SYSTEMS The patient complains of mild pain on weight bearing. He has had swelling. All systems otherwise negative, except as recorded above. PAST HISTORY See nurses notes. Tetanus immunization status is up-to-date. SOCIAL HISTORY Smoker - current status unknown. No drug use. ADDITIONAL NOTES The nursing notes have been reviewed with agreement regarding the chief complaint, HPI, ROS, PMH and patient medications and allergies. PHYSICAL EXAM Vital Signs: 12/10/2016 16:21 BP: 112/74. HR: 78. RR: 12. O2 saturation: 100%. Temp: 98.5 F. Pain level now: 4/10. 12/10/2016 13:50 BP: 110/64. HR: 77. RR: 16. O2 saturation: 99%. Temp: 98.4 F. Pain level now: 6/10. Appearance: Alert. Oriented X3. No acute distress. Extremities: Right lateral ankle: mild tenderness and swelling. Limited ROM secondary to pain (diminished plantar flexion, dorsiflexion, inversion and eversion). Small joint effusion present. Neurovascular intact distally. No ligamentous laxity present. No deformity. Foot and ankle exam otherwise negative. Neuro, Vascular and Tendons: Vascular status intact. Sensation intact. Motor intact. Tendon function intact. Gait: Limping gait. LABS, X-RAYS, AND EKG X-Rays: Right ankle negative. Rt Ankle X-ray: (Name: Cristi Whipple : 1995 MR#: [id number] Ordering Provider: JOSE RAGLAND Exam(s): XR ANKLE 3 OR 4 VIEWS - RIGHT Date of Exam: 12/10/2016 __ PROCEDURE: XR ANKLE 3 OR 4 VIEWS - RIGHT INDICATION: TRAUMA/INJURY TECHNIQUE: Four views. COMPARISON: Right ankle x-ray 05/19/2015. FINDINGS: Old a avulsion fractures of the medial malleolus. No acute fracture or dislocation. Ankle mortise is normal. Mild soft tissue swelling medially and laterally. IMPRESSION: 1. No acute fracture 2. Old avulsion fractures of the medial malleolus Electronically Final signed by:Tim Perez MD 12/10/2016 4:20:23 PM Technologist: BEATRIZ). The X-rays were independently viewed by me, interpreted by the radiologist and discussed with the radiologist. PROGRESS AND PROCEDURES Course of Care: Patient is stable. CLINICAL IMPRESSION Sprain of the tibiofibular ligament of the right ankle. INSTRUCTIONS Apply ice. Use crutches for one weeks as needed and until better. Wear air splint for two weeks until better (wear the splint that you already have for ankle stability,). Elevate affected areas above chest level for two days as needed and until better. No sports until released and for 2 days. No strenuous activity. You may walk and bear weight as tolerated. Return to school in two days. No dietary restrictions. Warnings: COMPLICATIONS: Complications from this condition are possible. Future problems may include pain and deformity. It is important to follow up with a physician for further evaluation and treatment. Your Current Medications: CONTINUE TAKING THE FOLLOWING MEDICATIONS: Antidepressant*. OTC Medications: Motrin IB 200 mg (available over the counter): take 2 orally every 6 hours as needed for pain, stiffness or swelling Understanding of the discharge instructions verbalized by patient and parent. (Electronically signed by Jose Ragland PA-C 12/10/2016 22:25)
--- NOTE | 2016-12-10 16:20 | DIAGNOSTIC IMAGING REPORT ---
PROCEDURE: XR ANKLE 3 OR 4 VIEWS - RIGHT INDICATION: TRAUMA/INJURY TECHNIQUE: Four views. COMPARISON: Right ankle x-ray 05/19/2015. FINDINGS: Old a avulsion fractures of the medial malleolus. No acute fracture or dislocation. Ankle mortise is normal. Mild soft tissue swelling medially and laterally. IMPRESSION: 1. No acute fracture 2. Old avulsion fractures of the medial malleolus
--- NOTE | 2016-12-10 22:25 | ED MAR SUMMARY ---
..... Medication Administration Record [facility] [address] [place] [place], [place] [id number] Patient: NAZARIO WHIPPLE Visit ID: [id number] 21y, M Weight: 142.4 kg Height/Length: 65 in BMI: 52.3 ALLERGIES: No Known Drug Allergy
--- NOTE | 2016-12-10 22:25 | ED DISCHARGE INSTRUCTIONS ---
Patient: NAZARIO WHIPPLE General Instructions [facility] VisitID: [id number] [place] [address] 21y, M Registration Date/Time: 12/10/2016 Sprain of the tibiofibular ligament of the right ankle. INSTRUCTIONS Apply ice. Use crutches for one weeks as needed and until better. Wear air splint for two weeks until better (wear the splint that you already have for ankle stability,). Elevate affected areas above chest level for two days as needed and until better. No sports until released and for 2 days. No strenuous activity. You may walk and bear weight as tolerated. Return to school in two days. No dietary restrictions. Warnings: COMPLICATIONS: Complications from this condition are possible. Future problems may include pain and deformity. It is important to follow up with a physician for further evaluation and treatment. Your Current Medications: CONTINUE TAKING THE FOLLOWING MEDICATIONS: Antidepressant*. OTC Medications: Motrin IB 200 mg (available over the counter): take 2 orally every 6 hours as needed for pain, stiffness or swelling Understanding of the discharge instructions verbalized by patient and parent. ADDITIONAL INFORMATION Sprain, Ankle,With X-Ray A sprain is an injury to the ligaments or capsule that holds a joint together. There are no broken bones. Most sprains take from four to six weeks to heal. If the ligament is completely torn (severe sprain), it can take several months to recover. Mild to moderate sprains may be treated with an elastic wrap or an in-shoe splint to provide support and prevent re-injury. A mild sprain may not require any additional support. A severe sprain may require surgery to repair. Home care The following guidelines will help you care for your injury at home: Stay off the injured leg as much as possible until you can walk on it without pain. If you have a lot of pain with walking, crutches or a walker may be prescribed. (These can be rented or purchased at many pharmacies and surgical or orthopedic supply stores). Follow your doctor's advice regarding when to begin bearing weight on that leg. Keep your leg elevated to reduce pain and swelling. When sleeping, place a pillow under the injured leg. When sitting, support the injured leg so it is level with your waist. This is very important during the first 48 hours. Apply an ice pack (ice cubes in a plastic bag, wrapped in a towel) over the injured area for 20 minutes every 12 hours the first day. You can place the ice pack directly over the splint/cast. If you were given a boot, open it to apply the ice pack. Continue with ice packs 34 times a day for the next two days, then as needed for the relief of pain and swelling. You may use acetaminophen or ibuprofen to control pain, unless another pain medicine was prescribed. If you have chronic liver or kidney disease or ever had a stomach ulcer or GI bleeding, talk with your doctor before using these medicines. You may return to sports after healing, when you can run without pain. A sprained ankle is at risk for re-injury during the first six weeks. During that time, protect your ankle with an in-shoe splint that prevents tilting of your ankle from side to side. This is very important if you do active work or play sports during that time. Follow-up care Any X-rays you had today dont show any broken bones, breaks, or fractures. Sometimes fractures dont show up on the first X-ray. Bruises and sprains can sometimes hurt as much as a fracture. These injuries can take time to heal completely. If your symptoms dont improve or they get worse, talk with your doctor. You may need a repeat X-ray. When to seek medical care Get prompt medical attention if any of the following occur: The plaster cast or splint gets wet or soft The fiberglass cast or splint gets wet and does not dry for 24 hours Pain or swelling increases, or redness appears Toes become cold, blue, numb or tingly Re-injure your ankle You have been given the following additional information: Sprain, Ankle, With X-Ray No sports until released and for 2 days. No strenuous activity. You may walk and bear weight as tolerated. Return to school in two days. (Electronically signed by Sienna Gardner PA-C 12/10/2016 22:25)
--- NOTE | 2016-12-10 22:25 | ED MAR SUMMARY ---
..... Medication Administration Record [facility] [address] [place], [place] [id number] Patient: NAZARIO WHIPPLE Visit ID: [id number] 21y, M Weight: 142.4 kg Height/Length: 65 in BMI: 52.3 ALLERGIES: No Known Drug Allergy
--- NOTE | 2016-12-10 22:25 | ED MED RECONCILIATION SUMMARY ---
Patient: NAZARIO WHIPPLE Medication Reconciliation Report [facility] VisitID: [id number] [address] [place] [address] 21y, M Registration Date/Time: 12/10/2016 Weight: 142.4 kg Height/Length: 65 in. BMI: 52.3 ALLERGIES: No Known Drug Allergy The patient's Home Medications are listed below: CONTINUE TAKING THE FOLLOWING MEDICATIONS: Antidepressant The source(s) of the original Home Medication information: patient The following Medications were given to the patient in the Emergency Department: None. The following Medications were prescribed to the patient: Motrin IB 200 mg (available over the counter): take 2 orally every 6 hours as needed for pain, stiffness or swelling -- Sienna Gardner PA-C
--- NOTE | 2016-12-10 22:25 | ED MED RECONCILIATION SUMMARY ---
Patient: NAZARIO WHIPPLE Medication Reconciliation Report [facility] VisitID: [id number] [address] [place] [address] 21y, M Registration Date/Time: 12/10/2016 Weight: 142.4 kg Height/Length: 65 in. BMI: 52.3 ALLERGIES: No Known Drug Allergy The patient's Home Medications are listed below: CONTINUE TAKING THE FOLLOWING MEDICATIONS: Antidepressant The source(s) of the original Home Medication information: patient The following Medications were given to the patient in the Emergency Department: None. The following Medications were prescribed to the patient: Motrin IB 200 mg (available over the counter): take 2 orally every 6 hours as needed for pain, stiffness or swelling -- Sienna Gardner PA-C
== END 2016-12-10 16:00 | disposition home or self-care (01) ==
LOC: ED SRH 13:28
DX: S93.431A Sprain of tibiofibular ligament of right ankle, initial encounter (principal); X50.9XXA Other and unspecified overexertion or strenuous movements or postures, initial encounter; Y93.89 Activity, other specified; Y92.009 Unspecified place in unspecified non-institutional (private) residence as the place of occurrence of the external cause